=== PATIENT | female | born 2000 | race Caucasian/White ===

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

== ENCOUNTER 2020-08-01 08:27 | Emergency (ER) | payer OTHER ==
[2020-08-01 09:27] LABS: Absolute Lymphocytes (CBC) 2.6 K/uL (0.7-4.9); Basophils % 0.5 % (0-1.3); Hematocrit 37.8 % (36.0-45.0); Lymphocytes % 25.8 % (15.3-44.8); MPV 7.8 fL (7.6-11.3); RBC Red Blood Cell Count 4.85 M/uL (3.86-4.86)
[2020-08-01] MEDS ORDERED: NA CHLORIDE 0.9% 1,000 ML ONE (09:30)
[2020-08-01 09:48] LABS: BUN Blood Urea Nitrogen 4 mg/dL (7-18); Bicarbonate 23 mmol/L (21-32); Glucose Level 91 mg/dL (74-106); HCG, Quantitative 97583 mIU/mL (1-3); Potassium 3.9 mmol/L (3.5-5.1); Sodium Level 136 mmol/L (136-145)
--- NOTE | 2020-08-01 10:26 | EDPHYS ---
Physician Documentation [facility] Name: Allie Marvin Age: 19 yrs Sex: Female : 2000 Arrival Date: 08/01/2020 Time: 08:29 Bed 11 Private MD: ED Physician Nolberto Moyer HPI: 08/01 08:58 This 19 yrs old Female presents to ER via Ambulatory with complaints of yazmin Vaginal Bleeding, + Preg <12wks. 08:58 The patient presents to the emergency department with possible uterine contractions. yazmin [address] MAGISTRATE: 09:22 LMP N/A - tw2 Historical: - Allergies: 08:41 No Known Allergies; hb - Home Meds: 08:41 Protonix Oral [Active]; Vitamin Oral tab 1 tab once daily [Active]; hb - PMHx: 08:41 bleeding ulcer; PUD; hb - PSHx: 08:41 None; hb - Immunization history:: Adult Immunizations up to date. - Social history:: Smoking status: Patient denies any tobacco usage or history of. ROS: 09:12 Constitutional: Negative for fever, chills, and weight loss, Eyes: Negative for injury, yazmin pain, redness, and discharge, ENT: Negative for injury, pain, and discharge, Neck: Negative for injury, pain, and swelling, Cardiovascular: Negative for chest pain, palpitations, and edema, Respiratory: Negative for shortness of breath, cough, wheezing, and pleuritic chest pain, Abdomen/GI: Negative for abdominal pain, nausea, vomiting, diarrhea, and constipation, Back: Negative for injury and pain, MS/Extremity: Negative for injury and deformity, Skin: Negative for injury, rash, and discoloration, Neuro: Negative for headache, weakness, numbness, tingling, and seizure, Psych: Negative for depression, anxiety, suicide ideation, homicidal ideation, and hallucinations, Allergy/Immunology: Negative for hives, rash, and allergies, Endocrine: Negative for neck swelling, polydipsia, polyuria, polyphagia, and marked weight changes, Hematologic/Lymphatic: Negative for swollen nodes, abnormal bleeding, and unusual bruising. 09:12 : Positive for pelvic pain, vaginal bleeding. Exam: 09:12 Constitutional: This is a well developed, well nourished patient who is awake, alert, yazmin and in no acute distress. Head/Face: Normocephalic, atraumatic. Eyes: Pupils equal round and reactive to light, extra-ocular motions intact. Lids and lashes normal. Conjunctiva and sclera are non-icteric and not injected. Cornea within normal limits. Periorbital areas with no swelling, redness, or edema. ENT: Nares patent. No nasal discharge, no septal abnormalities noted. Tympanic membranes are normal and external auditory canals are clear. Oropharynx with no redness, swelling, or masses, exudates, or evidence of obstruction, uvula midline. Mucous membranes moist. Neck: Trachea midline, no thyromegaly or masses palpated, and no cervical lymphadenopathy. Supple, full range of motion without nuchal rigidity, or vertebral point tenderness. No Meningismus. Chest/axilla: Normal chest wall appearance and motion. Nontender with no deformity. No lesions are appreciated. Cardiovascular: Regular rate and rhythm with a normal S1 and S2. No gallops, murmurs, or rubs. Normal PMI, no JVD. No pulse deficits. Respiratory: Lungs have equal breath sounds bilaterally, clear to auscultation and percussion. No rales, rhonchi or wheezes noted. No increased work of breathing, no retractions or nasal flaring. Abdomen/GI: Soft, non-tender, with normal bowel sounds. No distension or tympany. No guarding or rebound. No evidence of tenderness throughout. Back: No spinal tenderness. No costovertebral tenderness. Full range of motion. Skin: Warm, dry with normal turgor. Normal color with no rashes, no lesions, and no evidence of cellulitis. MS/ Extremity: Pulses equal, no cyanosis. Neurovascular intact. Full, normal range of motion. Neuro: Awake and alert, GCS 15, oriented to person, place, time, and situation. Cranial nerves II-XII grossly intact. Motor strength 5/5 in all extremities. Sensory grossly intact. Cerebellar exam normal. Normal gait. 09:12 : CVA tenderness, is absent. Vital Signs: 08:40 BP 133 / 90; Pulse 89; Resp 16; Temp 97.8; Pulse Ox 100% on R/A; Weight 95.25 kg; hb Height 5 ft. 2 in. (157.48 cm); Pain 0/10; 08:40 Body Mass Index 38.41 (95.25 kg, 157.48 cm) hb MDM: 08:44 Patient medically screened. [facility] 09:13 Differential diagnosis: ectopic . Data reviewed: vital signs, nurses notes, [facility] lab test result(s), radiologic studies, ultrasound. Data interpreted: flight engineer manager: not applicable for this patient encounter. Test interpretation: by ED physician or midlevel provider:. Counseling: I had a detailed discussion with the patient and/or guardian regarding: the historical points, exam findings, and any diagnostic results supporting the discharge/admit diagnosis, lab results, radiology results, the need for outpatient follow up, for definitive care, an OB/Gyne specialist. 08/01 08:58 Order name: Quantitative Hcg; Complete Time: 10:25 [facility] 08/01 08:58 Order name: Abo/rh Typing; Complete Time: 10:25 [facility] 08/01 08:58 Order name: Basic Metabolic Panel; Complete Time: 10:25 [facility] 08/01 08:58 Order name: CBC with Diff; Complete Time: 10:25 [facility] 08/01 10:14 Order name: 1St Trimest Single 1St Fetus [facility] 08/01 08:58 Order name: IV Saline Lock; Complete Time: 09:12 [facility] 08/01 08:58 Order name: Labs collected and sent; Complete Time: 09:12 [facility] 08/01 08:58 Order name: NPO [facility] Administered Medications: 09:19 Drug: NS 0.9% 1000 ml Route: IV; Rate: 1 bolus; Site: left antecubital; tw2 10:10 Follow up: Response: No adverse reaction; IV Status: Completed infusion; IV Intake: tw2 1000ml Disposition: 08/01/20 10:25 Discharged to Home. Impression: Threatened . - Condition is Fair. - Discharge Instructions: Threatened Miscarriage, First Trimester of , Dxvt-eh-Uzvn, First Trimester of , Threatened Miscarriage, Usdr-av-Icvd, Pelvic Rest. - Prescriptions for Vitamin 27- 0.8 mg Oral Tablet - take 1 tablet by ORAL route once daily; 30 tablet. - Medication Reconciliation Form, Thank You Letter, Antibiotic Education, Prescription Opioid Use form. - Follow up: Private Physician; When: 2 - 3 days; Reason: Recheck today's complaints, Re-evaluation by your physician. Follow up: Hung Olvera; When: 2 - 3 days; Reason: Recheck today's complaints, Continuance of care, Re-evaluation by your physician. - Problem is new. - Symptoms have improved. Signatures: Dispatcher [employer] Nolberto Jean MD MD cha Baxter, Heather, RN RN Nicole Maurer RN RN tw2 Corrections: (The following items were deleted from the chart) 10:14 09:33 Transvaginal Ob+US.RAD.BRZ ordered. [facility] 10:35 10:25 08/01/2020 10:25 Discharged to Home. Impression: Threatened . Condition tw2 is Fair. Discharge Instructions: Threatened Miscarriage, First Trimester of , Dang-sz-Iscu, First Trimester of , Threatened Miscarriage, Uztk-po-Neqp, Pelvic Rest. Prescriptions for Vitamin 27-0.8 mg Oral Tablet - take 1 tablet by ORAL route once daily; 30 tablet. and Forms are Medication Reconciliation Form, Thank You Letter, Antibiotic Education, Prescription Opioid Use. Follow up: Private Physician; When: 2 - 3 days; Reason: Recheck today's complaints, Re-evaluation by your physician. Follow up: Hung Olvera; When: 2 - 3 days; Reason: Recheck today's complaints, Continuance of care, Re-evaluation by your physician. Problem is new. Symptoms have improved. yazmin
--- NOTE | 2020-08-01 10:26 | ER ---
Nurse's Notes [facility] Name: Allie Marvin Age: 19 yrs Sex: Female : 2000 Arrival Date: 08/01/2020 Time: 08:29 Bed 11 Private MD: Diagnosis: Threatened Presentation: 08/01 08:40 Chief complaint: Dark red vaginal bleeding upon waking today. Reports she is approx 10 hb weeks , denies pain. Coronavirus screen: At this time, the client does not indicate any symptoms associated with coronavirus-19. Ebola Screen: No symptoms or risks identified at this time. Initial Sepsis Screen: Does the patient meet any 2 criteria? No. Patient's initial sepsis screen is negative. Does the patient have a suspected source of infection? No. Patient's initial sepsis screen is negative. Risk Assessment: Do you want to hurt yourself or someone else? Patient reports no desire to harm self or others. Onset of symptoms was August 01, 2020. 08:40 Method Of Arrival: Ambulatory hb 08:40 Acuity: RAJIV 3 hb HEAD HOST/HOSTESS: 09:22 LMP N/A - tw2 Historical: - Allergies: 08:41 No Known Allergies; hb - Home Meds: 08:41 Protonix Oral [Active]; Vitamin Oral tab 1 tab once daily [Active]; hb - PMHx: 08:41 bleeding ulcer; PUD; hb - PSHx: 08:41 None; hb - Immunization history:: Adult Immunizations up to date. - Social history:: Smoking status: Patient denies any tobacco usage or history of. Screenin:44 Abuse screen: Denies threats or abuse. Nutritional screening: No deficits noted. tw2 Tuberculosis screening: No symptoms or risk factors identified. Fall Risk None identified. Assessment: 08:44 Reassessment: pt states "i got a rhogam shot a couple of weeks ago, i have the card in tw2 my car if yall need it because of my Rh negative", "also my doctor told me to come here because they werent seeing pts". General: Appears in no apparent distress. obese, well groomed, Behavior is calm, cooperative, appropriate for age. Pain: Denies pain. Neuro: Level of Consciousness is awake, alert, obeys commands, Oriented to person, place, time, situation. Cardiovascular: Patient's skin is warm and dry. Respiratory: Airway is patent Respiratory effort is even, unlabored, Respiratory pattern is regular, symmetrical. GI: No signs and/or symptoms were reported involving the gastrointestinal system. : Reports vaginal bleeding that is bright red, heavy flow since this morning but some yesterday too. EENT: No signs and/or symptoms were reported regarding the EENT system. Musculoskeletal: Range of motion: intact in all extremities. 10:35 Reassessment: Patient appears in no apparent distress at this time. No changes from tw2 previously documented assessment. Patient and/or family updated on plan of care and expected duration. Pain level reassessed. Patient is alert, oriented x 3, equal unlabored respirations, skin warm/dry/pink. Vital Signs: 08:40 BP 133 / 90; Pulse 89; Resp 16; Temp 97.8; Pulse Ox 100% on R/A; Weight 95.25 kg; hb Height 5 ft. 2 in. (157.48 cm); Pain 0/10; 08:40 Body Mass Index 38.41 (95.25 kg, 157.48 cm) hb ED Course: 08:29 Patient arrived in ED. ds1 08:35 Nolberto Moyer MD is Attending Physician. yazmin 08:41 Triage completed. hb 08:41 Arm band placed on. hb 08:44 Nicole Chilel, RN is Primary Nurse. tw2 08:44 Call light in reach. Pulse ox on. NIBP on. tw2 09:00 Inserted saline lock: 20 gauge in left antecubital area, using aseptic technique. Blood tw2 collected. 10:14 1St Trimest Single 1St Fetus In Process Unspecified. EDMS 10:25 Hung Olvera MD is Referral Physician. yazmin 10:34 Assist provider with bone marrow aspiration. IV discontinued, intact, bleeding tw2 controlled, No redness/swelling at site. Pressure dressing applied. Administered Medications: 09:19 Drug: NS 0.9% 1000 ml Route: IV; Rate: 1 bolus; Site: left antecubital; tw2 10:10 Follow up: Response: No adverse reaction; IV Status: Completed infusion; IV Intake: tw2 1000ml Intake: 10:10 IV: 1000ml; Total: 1000ml. tw2 Outcome: 10:25 Discharge ordered by . yazmin 10:35 Discharged to home ambulatory. tw2 10:35 Condition: stable 10:35 Discharge instructions given to patient, Instructed on discharge instructions, follow up and referral plans. medication usage, safe sex practices, Demonstrated understanding of instructions, follow-up care, medications, Prescriptions given X 1. 10:35 Patient left the ED. tw2 Signatures: Dispatcher [employer] Nolberto Jean MD MD cha Sanford, Demi ds1 Deepika Carlin RN RN Nicole Chilel RN RN tw2
--- NOTE | 2020-08-01 10:30 | RAD REPORT ---
EXAM DESCRIPTION: US - 1St Trimest Single 1St Fetus - 08/01/2020 10:15 am CLINICAL HISTORY: ABD CRAMPING, COMPARISON: No comparisons Patient reports outside ultrasound study 3 weeks earlier indicating a 6-7 week . FINDINGS: Normal shaped intrauterine gestational sac is identified. pole is identified with a heart rate of 172 BPM. Bethel-rump length measurement corresponds to 8 week 0 day age. No intrauterine hematoma or mass. Uterus is normal size for 8 week gestation. Both ovaries are identified and show no suspicious findings. No adnexal abnormality. No blood or flui d in the cul de sac. Cervical canal appears closed. IMPRESSION: Single 8 week 0 day IUP with a calculated JOEY of 03/13/2021 Heart rate was 172 BPM. No intrauterine hematoma or mass. No adnexal abnormality.
[2020-08-01 10:46] VITALS: BP 133/90; TEMP 97.8; O2SAT 100
== END 2020-08-01 10:35 | disposition home or self-care (01) ==
LOC: ER 08:27
DX: O20.0 Threatened abortion (principal); Z3A.08 8 weeks gestation of pregnancy
CPT/HCPCS: 85025; 80048; 36415; 86900; 86901; 84702; 76801; 96360; 99285; J7030

== ENCOUNTER 2020-09-17 06:37 | Observation (INO) | payer OTHER, SELFPAY ==
--- OUTSIDE RECORDS SUMMARY | 2020-09-17 06:40 | XMS REPORT | Continuity of Care Document ---
:2000 Author Organization [facility] t Address [address] [place] [address] Care Team Providers Name Role Phone 2, Lab Attending Clinician Unavailable Pino Lam MD Attending Clinician Pedro Luis Medley DO Attending Clinician Doctor Unassigned, Name Attending Clinician Unavailable Problems This patient has no known problems. Allergies, Adverse Reactions, Alerts This patient has no known allergies or adverse reactions. Medications This patient has no known medications. Procedures This patient has no known procedures. Encounters Start End Encounter Admission Attending Care Care Encounter Source Date/Time Date/Time Type Type Clinicians Facility Department ID 2020-09-03 2020-09-03 Night Monitor 2, [facility] [id number] 09:14:40 09:29:40 Visit Dagoberto [id number] Catrina [id number] [place] [id number] [facility] [address] [facility] 2020-09-03 2020-09-03 Routine Carole MOSTAR [id number] 08:06:16 09:08:19 Katey Arenas [id number] Visit Catrina [id number] [place] [id number] [facility] [address] [facility] 2020-09-03 2020-09-03 Patient ELKIN Medley [id number] 00:00:00 00:00:00 Outreach Vasiliy ROWLAND [id number] Pedro Luis [facility] [id number] [facility] [id number] [facility] 2020-08-07 2020-08-07 Night Monitor 2, Adc Lab [facility] [id number] 08:54:05 09:09:05 Visit Dagoberto [id number] [facility] [id number] [place] [id number] [address] 2020-08-06 2020-08-06 Orders Doctor SANDRA [id number] 00:00:00 00:00:00 Only Unassigned, GAURANG [id number] [place] [facility] [id number] Results This patient has no known results.
[2020-09-17] MEDS ORDERED: Ringers Lactate 1,000 ML IV ONE (08:09)
[2020-09-17] MEDS ORDERED: ONDANSETRON 4 MG/2 ML VIAL ONE ×2 (08:09→11:00)
[2020-09-17 08:30] LABS: ALT/SGPT 17 U/L (12-78); AST/SGOT 12 U/L (15-37); Albumin 3.7 g/dL (3.4-5.0); Alkaline Phosphatase 65 U/L (45-117); BUN Blood Urea Nitrogen 6 mg/dL (7-18); Bicarbonate 24 mmol/L (21-32); Bilirubin Direct 0.1 mg/dL (0-0.2); Bilirubin Total 0.4 mg/dL (0.2-1.0); Glucose Level 132 mg/dL (74-106); Lipase 101 U/L (73-393); Potassium 3.5 mmol/L (3.5-5.1); Protein, Total 8.1 g/dL (6.4-8.2); Sodium Level 139 mmol/L (136-145)
[2020-09-17 08:33] LABS: Absolute Lymphocytes (CBC) 1.8 K/uL (0.7-4.9); Basophils % 0.1 % (0-1.3); Hematocrit 37.8 % (36.0-45.0); Lymphocytes % 11.8 % (15.3-44.8); RBC Red Blood Cell Count 4.61 M/uL (3.86-4.86)
--- NOTE | 2020-09-17 08:35 | RAD REPORT ---
EXAM DESCRIPTION: US - OB Limited - 09/17/2020 8:23 am CLINICAL HISTORY: with abdominal pain and vomiting COMPARISON: July 2020 FINDINGS: A limited examination was performed to assess placenta, amniotic fluid and viability. Single live into is in transverse presentation. The placenta is anterior. No placenta previa. Amniotic fluid is within normal limits. Cervix measures 3.6 centimeters. Cardiac activity 147 beats per minute. The right and left adnexal unremarkable IMPRESSION: Single live intrauterine in transverse presentation No gross abnormality displayed on this limited exam. If a survey is desired it should be performed in approximately 3-4 weeks
--- NOTE | 2020-09-17 08:41 | RAD REPORT ---
EXAM DESCRIPTION: US - Abdomen Exam Limited - 09/17/2020 8:23 am CLINICAL HISTORY: Abdominal pain. Vomiting COMPARISON: None. FINDINGS: The gallbladder wall is not thickened. A gallstone is not seen. The biliary tree is normal caliber. IMPRESSION: Unremarkable gallbladder ultrasound.
[2020-09-17] MEDS ORDERED: PROMETHAZINE INJ 25 MG/ML AMP ONE (09:03)
[2020-09-17 09:17] LABS: Blood Morphology Comment NOT SEEN (NOT SEEN); Platelet Estimate ADEQ
[2020-09-17 10:16] LABS: Urine Blood Negative (Negative); Urine Glucose Negative (Negative); Urine Protein 2+ (Negative); Urine pH 7.5 (5.0-7.0)
[2020-09-17] MEDS ORDERED: NITROFURAN MACRO 100 MG CAP PO ONE (10:54)
--- NOTE | 2020-09-17 11:26 | EDPHYS ---
Physician Documentation [facility] Name: Allie Marvin Age: 19 yrs Sex: Female : 2000 Arrival Date: 09/17/2020 Time: 06:40 Bed 8 Private MD: ED Physician Joseph Jolly HPI: 09/17 07:42 This 19 yrs old Female presents to ER via Ambulatory with complaints of Body rn ache 16wks preg, vomiting. 07:42 The patient presents to the emergency department with nausea, vomiting, abdominal pain. rn Onset: The symptoms/episode began/occurred "since finding out was ". Possible causes: . The symptoms are aggravated by nothing. The symptoms are alleviated by nothing. Associated signs and symptoms: Pertinent positives: abdominal pain, nausea, vomiting, Pertinent negatives: GI bleeding. Severity of symptoms: At their worst the symptoms were moderate in the emergency department the symptoms are unchanged. The patient has experienced similar episodes in the past. It is unknown whether or not the patient has recently seen a physician. Reports nausea and vomiting "since finding out was ", worse over last couple of days, assoc with suprapubic pain, no vaginal bleeding, no discharge, + muscle aches, no fever. Mother states dehydrated. No known sick contacts. . COMBER SETTER: 07:11 1, unknown bb Historical: - Allergies: 07:11 No Known Allergies; bb - Home Meds: 07:11 Vitamin Oral tab 1 tab once daily [Active]; antiemetic [Active]; Protonix Oral bb [Active]; - PMHx: 07:11 bleeding ulcer; PUD; bb - PSHx: 07:11 None; bb - Immunization history:: Adult Immunizations up to date. - Social history:: Smoking status: Patient reports the use of cigarette tobacco products, denies chronic smoking, but will smoke occasionally. - Family history:: not pertinent. - Hospitalizations: : The patient was recently seen at [facility]. ROS: 07:42 Constitutional: Negative for fever, chills, and weight loss, Eyes: Negative for injury, rn pain, redness, and discharge, Neck: Negative for injury, pain, and swelling, Cardiovascular: Negative for chest pain, palpitations, and edema, Respiratory: Negative for shortness of breath, cough, wheezing, and pleuritic chest pain, Abdomen/GI: + abd pain/nausea/vomiting Back: Negative for injury and pain, : Negative for injury, bleeding, discharge, and swelling, MS/Extremity: Negative for injury and deformity, Skin: Negative for injury, rash, and discoloration, Neuro: Negative for headache, numbness, tingling, and seizure. Exam: 07:42 Constitutional: This is a well developed, well nourished patient who is awake, alert, rn holding emesis bag Head/Face: Normocephalic, atraumatic. ENT: dry MM Neck: Trachea midline, no thyromegaly or masses palpated, and no cervical lymphadenopathy. Supple, full range of motion without nuchal rigidity, or vertebral point tenderness. No Meningismus. Cardiovascular: Regular rate and rhythm. No pulse deficits. Respiratory: No increased work of breathing, no retractions or nasal flaring. Abdomen/GI: soft, + tenderness epigastric/RUQ/suprapubic, no rebound or peritoneal signs. Skin: Warm, dry MS/ Extremity: Pulses equal, no cyanosis. Neuro: Awake and alert, GCS 15 Vital Signs: 07:09 BP 144 / 84; Pulse 81; Resp 20 S; Temp 97.9(O); Pulse Ox 100% on R/A; Weight 99.79 kg bb (R); Height 5 ft. 2 in. (157.48 cm) (R); Pain 10/10; 10:00 BP 138 / 82; Pulse 80; Resp 16; Pulse Ox 99% on R/A; hb 07:09 Body Mass Index 40.24 (99.79 kg, 157.48 cm) bb MDM: 07:30 Patient medically screened. rn 11:16 ED course: Trevino dDr. Olvera for consultation twice, no answer, trying clinic. . rn 11:24 Differential diagnosis: Nonspecific abd pain, UTI, dehydration. Data reviewed: vital rn signs, nurses notes, lab test result(s), radiologic studies, and as a result, I will admit patient. Counseling: I had a detailed discussion with the patient and/or guardian regarding: the historical points, exam findings, and any diagnostic results supporting the discharge/admit diagnosis, lab results, radiology results, the need for further work-up and treatment in the hospital. Response to treatment: the patient's symptoms have mildly improved after treatment, and as a result, I will admit patient. Admission orders: after a detailed discussion of the patient's condition and case, the admit orders are written by me. ED course: Pt failed PO challenge, still vomiting, consulted with Dr. Olvera, agrees to admit [facility] to [facility] for IV [facility] and zofran.. 09/17 07:41 Order name: Basic Metabolic Panel; Complete Time: 08:44 rn 09/17 07:41 Order name: CBC with Diff; Complete Time: 09:56 rn 09/17 07:41 Order name: Hepatic Function; Complete Time: 08:44 rn 09/17 07:41 Order name: Lipase; Complete Time: 08:44 rn 09/17 07:41 Order name: Urine Microscopic Only rn 09/17 07:41 Order name: US OB Limited; Complete Time: 08:44 rn 09/17 07:41 Order name: US Abdomen Limited; Complete Time: 08:44 rn 09/17 09:00 Order name: SARS-COV-2 RT PCR; Complete Time: 09:56 EDMS 09/17 09:17 Order name: Manual Differential; Complete Time: 09:56 EDMS 09/17 10:16 Order name: Urine Dipstick-Ancillary; Complete Time: 10:24 EDMS 09/17 10:19 Order name: Urine --Ancillary (enter results) bd 09/17 07:41 Order name: IV Saline Lock; Complete Time: 08:10 rn 09/17 07:41 Order name: Labs collected and sent; Complete Time: 08:10 rn 09/17 07:41 Order name: Urine Dipstick-Ancillary (obtain specimen); Complete Time: 10:55 rn 09/17 10:24 Order name: PO challenge; Complete Time: 10:50 rn Administered Medications: 08:06 Drug: Zofran (Ondansetron) 4 mg Route: IVP; Site: right antecubital; hb 09:53 Follow up: Response: No adverse reaction hb 08:51 Drug: Lactated Ringers Solution 1000 ml Route: IV; Rate: 500 ml/hr; Site: right hb antecubital; 08:51 Drug: Phenergan 12.5 mg Route: IVP; Site: right antecubital; hb 09:25 Follow up: Response: No adverse reaction hb 10:50 Drug: Macrobid 100 mg Route: PO; hb 11:34 Follow up: Response: No adverse reaction hb 10:50 Drug: Zofran (Ondansetron) 4 mg Route: IVP; Site: right antecubital; hb 11:34 Follow up: Response: No adverse reaction hb Disposition: 09/17/20 11:26 Hospitalization ordered by Hung Olvera for Observation. Preliminary diagnosis are Intractable vomiting, Urinary tract infection, site not specified, Dehydration. - [facility]. - Status is Observation. iw - Condition is Stable. - Problem is new. - Symptoms are unchanged. Signatures: Dispatcher [employer] EDUT Yue Martin RN RN sv Jeniffer Daniels RN RN bb Williams, Irene, RN RN iw Nieto, Roman, MD MD rn Baxter, Heather, RN RN hb Corrections: (The following items were deleted from the chart) 08:21 07:42 CORONAVIRUS+MR.LAB.BRZ ordered. [facility] EDUT 11:38 11:26 Hospitalization Ordered by Hung Olvera MD for Observation. Preliminary sv diagnosis is Intractable vomiting; Urinary tract infection, site not specified; Dehydration. Bed requested for Telemetry/MedSurg (observation). Status is Observation. Condition is Stable. Problem is new. Symptoms are unchanged. rn 12:23 11:38 09/17/2020 11:26 Hospitalization Ordered by Hung Olvera MD for Observation. iw Preliminary diagnosis is Intractable vomiting; Urinary tract infection, site not specified; Dehydration. Bed requested for [facility]. Status is Observation. Condition is Stable. Problem is new. Symptoms are unchanged. sv
--- NOTE | 2020-09-17 11:26 | ER ---
Nurse's Notes [facility] Name: Allie Marvin Age: 19 yrs Sex: Female : 2000 Arrival Date: 09/17/2020 Time: 06:40 Bed 8 Private MD: Diagnosis: Intractable vomiting;Urinary tract infection, site not specified;Dehydration Presentation: 09/17 07:09 Chief complaint: Parent and/or Guardian states: pt has been vomiting excessively since bb yesterday, pt states she is not feeling right and is vomiting in triage. Coronavirus screen: At this time, the client does not indicate any symptoms associated with coronavirus-19. Ebola Screen: No symptoms or risks identified at this time. Initial Sepsis Screen: Does the patient meet any 2 criteria? No. Patient's initial sepsis screen is negative. Does the patient have a suspected source of infection? No. Patient's initial sepsis screen is negative. Risk Assessment: Do you want to hurt yourself or someone else? Patient reports no desire to harm self or others. Onset of symptoms was September 16, 2020. 07:09 Method Of Arrival: Ambulatory bb 07:09 Acuity: RAJIV 2 bb Triage Assessment: 07:11 General: Appears ill, Behavior is anxious. Pain: Complains of pain in all over Pain bb currently is 10 out of 10 on a pain scale. Neuro: Level of Consciousness is awake, obeys commands, Oriented to person, place, situation. GI: Pt is actively vomiting. 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 - Social history:: Smoking status: Patient reports the use of cigarette tobacco products, denies chronic smoking, but will smoke occasionally. - Family history:: not pertinent. - Hospitalizations: : The patient was recently seen at [facility]. Screenin:00 Abuse screen: Denies threats or abuse. Denies injuries from another. Nutritional hb screening: No deficits noted. Tuberculosis screening: No symptoms or risk factors identified. Fall Risk None identified. Assessment: 08:00 General: Appears in no apparent distress. ill, Behavior is calm, cooperative. Pain: hb Pain currently is 8 out of 10 on a pain scale. Neuro: Level of Consciousness is awake, alert, obeys commands, Oriented to person, place, time, situation. 08:00 Cardiovascular: Patient's skin is warm and dry. Rhythm is regular. Respiratory: hb Respiratory effort is even, unlabored, Respiratory pattern is regular, symmetrical. GI: Pt is actively vomiting bile, Reports intolerance of fluids, nausea, vomiting. : No signs and/or symptoms were reported regarding the genitourinary system. EENT: No signs and/or symptoms were reported regarding the EENT system. Derm: Skin is pink, warm \T\ dry. Musculoskeletal: Reports severe body aches. 09:00 Reassessment: Patient appears in no apparent distress at this time. Patient and/or hb family updated on plan of care and expected duration. Pain level reassessed. Patient is alert, oriented x 3, equal unlabored respirations, skin warm/dry/pink. 09:43 Reassessment: Patient appears in no apparent distress at this time. Patient and/or hb family updated on plan of care and expected duration. Pain level reassessed. Patient is alert, oriented x 3, equal unlabored respirations, skin warm/dry/pink. 10:51 Reassessment: Patient appears in no apparent distress at this time. Patient and/or hb family updated on plan of care and expected duration. Pain level reassessed. Patient is alert, oriented x 3, equal unlabored respirations, skin warm/dry/pink. Vital Signs: 07:09 BP 144 / 84; Pulse 81; Resp 20 S; Temp 97.9(O); Pulse Ox 100% on R/A; Weight 99.79 kg bb (R); Height 5 ft. 2 in. (157.48 cm) (R); Pain 10/10; 10:00 BP 138 / 82; Pulse 80; Resp 16; Pulse Ox 99% on R/A; hb 07:09 Body Mass Index 40.24 (99.79 kg, 157.48 cm) bb ED Course: 06:40 Patient arrived in ED. es 07:11 Triage completed. bb 07:11 Arm band placed on. bb 07:30 Jolly, Joseph, MD is Attending Physician. rn 08:00 Patient has correct armband on for positive identification. Bed in low position. Call hb light in reach. 08:06 Inserted saline lock: 20 gauge in right antecubital area, using aseptic technique. hb Blood collected. 08:06 COVID swab sent to lab. hb 08:10 Deepika Carlin RN is Primary Nurse. hb 08:23 US OB Limited In Process Unspecified. EDMS 08:23 US Abdomen Limited In Process Unspecified. EDMS 08:25 Ultrasound completed. Patient tolerated well. aa4 11:25 Hung Olvera MD is Hospitalizing Provider. rn 12:14 No provider procedures requiring assistance completed. Patient admitted, IV remains in iw place. Administered Medications: 08:06 Drug: Zofran (Ondansetron) 4 mg Route: IVP; Site: right antecubital; hb 09:53 Follow up: Response: No adverse reaction hb 08:51 Drug: Lactated Ringers Solution 1000 ml Route: IV; Rate: 500 ml/hr; Site: right hb antecubital; 08:51 Drug: Phenergan 12.5 mg Route: IVP; Site: right antecubital; hb 09:25 Follow up: Response: No adverse reaction hb 10:50 Drug: Macrobid 100 mg Route: PO; hb 11:34 Follow up: Response: No adverse reaction hb 10:50 Drug: Zofran (Ondansetron) 4 mg Route: IVP; Site: right antecubital; hb 11:34 Follow up: Response: No adverse reaction hb Outcome: 11:26 Decision to Hospitalize by Provider. rn 12:14 Admitted to with chart, Report called to [facility] Ward, in [facility] iw 12:14 Condition: good 12:14 Discharge instructions given to patient, family, Instructed on the need for admit. 12:23 Patient left the ED. Signatures: Dispatcher [employer] Juanis Thompson Brenda, RN RN bb Williams, Irene, RN RN Caroline Sal aa4 Joseph Jolly MD MD rn Baxter, Heather, HOMAR RN hb
[2020-09-17 11:47] LABS: Urine Amorphous Sediment 3+ /HPF (NONE SEEN); Urine Bacteria 20-50 /HPF (<20); Urine Mucus 1+ /HPF (NONE SEEN); Urine RBC <5 /HPF (NONE SEEN)
[2020-09-17] MEDS ORDERED: ONDANSETRON 4 MG/2 ML VIAL IV PRN (12:36)
[2020-09-17] MEDS ORDERED: D5LR 1,000 ML IV SCH (12:36)
[2020-09-17] MEDS ORDERED: D5LR 1,000 ML IV ONE (13:06)
[2020-09-17] MEDS ORDERED: METOCLOPRAMIDE 10 MG/2mL INJ ONE (13:07)
[2020-09-17] MEDS ORDERED: METOCLOPRAMIDE 10 MG/2mL INJ IV SCH (14:00)
[2020-09-17 14:10] VITALS: BMI 40.2
[2020-09-17] MEDS ORDERED: MORPHINE 4 MG/ML SYR IV ONE (16:51)
[2020-09-17] MEDS ORDERED: MORPHINE 4 MG/ML SYR ONE (17:12)
[2020-09-17 17:14] VITALS: O2SAT 98
[2020-09-17] MEDS: METOCLOPRAMIDE 10 MG/2mL INJ IV SCH (19:00)
[2020-09-17] MEDS: ACETAMINOPHEN 500 MG TAB PO PRN (20:00)
[2020-09-17] MEDS ORDERED: ACETAMINOPHEN 500 MG TAB PO SCH (20:00)
[2020-09-17] MEDS ORDERED: ACETAMINOPHEN 500 MG TAB ONE (20:26)
[2020-09-17] MEDS: NITROFURAN MACRO 100 MG CAP PO SCH (20:40)
--- NOTE | 2020-09-17 21:59 | PREOPHP ---
Date of Admission: 09/17/2020 History Of Present Illness: A 19-year-old primigravida at 16 weeks, was seen in our emergency room e mark in the for vaginal bleeding, was subsequently stopped. Comes back to the emergency room with severe nausea, vomiting, dehydration. The patient was still unable to keep anything down o r stop vomiting in the emergency room. Said she was admitted for overnight observation. She has bee n hydrated. Her electrolytes are normal. At this time, she is sleeping. She has been given prometh azine. She is also started on Reglan at this point IV. Family History: Noncontributory. Allergies: SHE HAS NO ALLERGIES. Medications: She has been taking vitamins. Physical Examination: HEENT: Clear. Pupils equal, round, reactive to light and accommodation. Conjunctivae well perfused . No oral, lingual, or buccal lesions noted in the emergency room. Heart and Lungs: Normal. Breasts: Not examined. Abdomen: Not examined. Extremities: Clear without edema, cyanosis, or clubbing. Assessment/plan: Essentially we have a healthy female at 16 weeks with severe hyperemesis, admit for hydration and stabilization. ROXY/ARELI Voice ID: [id number]
[2020-09-18] MEDS: METOCLOPRAMIDE 10 MG/2mL INJ IV SCH ×2 (00:55→07:40)
[2020-09-18 06:01] LABS: Absolute Lymphocytes (CBC) 2.4 K/uL (0.7-4.9); Basophils % 0.3 % (0-1.3); Hematocrit 31.2 % (36.0-45.0); Lymphocytes % 19.3 % (15.3-44.8); MPV 7.9 fL (7.6-11.3); RBC Red Blood Cell Count 3.82 M/uL (3.86-4.86)
[2020-09-18 06:03] VITALS: BP 119/66; TEMP 97.3
[2020-09-18 06:17] LABS: BUN Blood Urea Nitrogen 5 mg/dL (7-18); Bicarbonate 26 mmol/L (21-32); Glucose Level 109 mg/dL (74-106); Potassium 3.4 mmol/L (3.5-5.1); Sodium Level 139 mmol/L (136-145)
[2020-09-18] MEDS: ACETAMINOPHEN 500 MG TAB PO PRN (08:13)
--- NOTE | 2020-09-18 08:36 | DS ---
Allie Marvin, 19-year-old primigravida, 16 weeks admitted through the emergency room with hy peremesis gravidarum and dehydration -- mild. The patient has been seen locally by a local physician , but had an appointment to see me today, came into the emergency room and was admitted for overnight observation, was started on Reglan and Zofran and she feels much better. She ate a sandwich last ni ght and kept it down and says she feels much better this morning. We will let her go home. She is t o call my office for an appointment next week, probably Wednesday or Wednesday. We will continue her on t he Reglan. We will also continue on Macrobid since apparently she has a bladder infection, although cultures not come back yet. She has also taken omeprazole for diagnosis of stomach acidity and possi ble ulcer which she said was diagnosed when she was 14, but no endoscopy was performed. The patient is Rh negative, had RhoGAM administered in July when she was here for emergency room visit for brayden kelley. She knows to get another RhoGAM later in the probably around 32 weeks and then we will see what the blood type is of the baby when the baby is born. Full talk given includi ng diet, exercise things to avoid. She is managing to keep her vitamins down. If she has a relapse, we will go with scopolamine patches, but right now I do not think we need that. She has on ly lost about 6 pounds and the patient weighs in the 200 pounds range, so thus far we are not dealing with any significant weight loss. Final Diagnoses: Intrauterine gestation at 16 weeks, hyperemesis, mild dehydration, now co rrected. Electrolytes have been normal. To follow up in my office early next week. ROXY/ARELI Voice ID: [id number] Report ID: [id number]
[2020-09-18] MEDS: NITROFURAN MACRO 100 MG CAP PO SCH (08:40)
== END 2020-09-18 08:45 | disposition home or self-care (01) ==
LOC: ER 06:37 → ERHOLD 11:28 → 2ND-WC 12:14
PROVIDERS: ADMIT Specialist; ATTEND Specialist
DX: O21.1 Hyperemesis gravidarum with metabolic disturbance (principal); Z3A.16 16 weeks gestation of pregnancy; Z20.822 Contact with and (suspected) exposure to COVID-19; O99.332 Smoking (tobacco) complicating pregnancy, second trimester; F17.210 Nicotine dependence, cigarettes, uncomplicated
CPT/HCPCS: 36415; 76705; 76815; 80048; 80076; 81003; 81015; 83690; 85025; 87077; 87086; 87088; 87186; 96374; 96375; 99285; G0378; J2405; J2550; J2765; J7120; J7121; U0003

== ENCOUNTER 2020-10-03 12:57 | Observation (INO) | payer OTHER ==
--- OUTSIDE RECORDS SUMMARY | 2020-10-03 13:00 | XMS REPORT | Continuity of Care Document ---
:2000 Author Organization [facility] t Address [address] [place] [address] Care Team Providers Name Role Phone Pino Lam MD Attending Clinician 2, Lab Attending Clinician Unavailable Pedro Luis Medley DO Attending Clinician Doctor [...] Date/Time Type Type Clinicians Facility Department ID 2020-09-17 2020-09-17 Telephone Ad, [facility] [id number] 00:00:00 00:00:00 Katey Arenas [id number] [place] [id number] Professio [phone] [facility] [address] [facility] 2020-09-03 2020-09-03 Thermodynamic Physicist 2, Adc Lab [facility] [id number] 09:14:40 09:29:40 Visit Dagoberto [id number] [place] [id number] Professio [phone] [address] 2020-09-03 2020-09-03 Routine Adum, [facility] [id number] 08:06:16 09:08:19 Katey Arenas [id number] Visit Catrina [id number] Professio [phone] [facility] 2020-09-03 2020-09-03 Patient Galindo [facility] [id number] 00:00:00 00:00:[address] [facility] [id number] [facility] [id number] [place] [phone] 2020-09-03 2020-09-03 Orders Doctor SANDRA [id number] 00:00:00 00:00:00 Only Unassigned, GAURANG [id number] [place] [facility] [id number] 2020-08-07 2020-08-07 Thermodynamic Physicist 2, Adc Lab [facility] [id number] 08:54:05 09:09:05 Visit Dagoberto [id number] [place] [id number] [place] [phone] [facility] [address] [facility] 2020-08-06 2020-08-06 Orders Doctor SANDRA [id number] 00:00:00 00:00:00 Only Unassigned, GAURANG [id number] [place] [facility] [id number] [id number] Results This patient has no known results.
[2020-10-03 14:03] LABS: Absolute Lymphocytes (CBC) 2.1 K/uL (0.7-4.9); Basophils % 0.2 % (0-1.3); Hematocrit 39.5 % (36.0-45.0); Lymphocytes % 9.9 % (15.3-44.8); MPV 8.1 fL (7.6-11.3); RBC Red Blood Cell Count 4.78 M/uL (3.86-4.86)
[2020-10-03 14:14] LABS: ALT/SGPT 20 U/L (12-78); AST/SGOT 12 U/L (15-37); Alkaline Phosphatase 71 U/L (45-117); BUN Blood Urea Nitrogen 8 mg/dL (7-18); Bicarbonate 18 mmol/L (21-32); Bilirubin Direct < 0.1 mg/dL (0-0.2); Bilirubin Total 0.4 mg/dL (0.2-1.0); Glucose Level 144 mg/dL (74-106); Lipase 100 U/L (73-393); Magnesium 1.7 mg/dL (1.8-2.4); Potassium 3.5 mmol/L (3.5-5.1); Protein, Total 8.6 g/dL (6.4-8.2); Sodium Level 138 mmol/L (136-145)
[2020-10-03 14:19] LABS: Urine Blood Negative (Negative); Urine Glucose Negative (Negative); Urine Protein 3+ (Negative); Urine Specific Gravity >=1.030 (1.005-1.030)
[2020-10-03] MEDS ORDERED: NA CHLORIDE 0.9% 1,000 ML ONE (14:21)
[2020-10-03] MEDS ORDERED: FAMOTIDINE 20 MG/2 ML VIAL IV ONE (14:21)
[2020-10-03] MEDS ORDERED: ONDANSETRON 4 MG/2 ML VIAL ONE (14:21)
[2020-10-03 15:19] LABS: Urine Bacteria >50 /HPF (<20); Urine RBC <5 /HPF (NONE SEEN)
[2020-10-03 15:20] LABS: Urine Amorphous Sediment 4+ /HPF (NONE SEEN)
[2020-10-03 15:25] LABS: Blood Morphology Comment NOT SEEN (NOT SEEN); Platelet Estimate INCR
--- NOTE | 2020-10-03 15:29 | RAD REPORT ---
EXAM DESCRIPTION: US - OB Limited - 10/03/2020 3:17 pm CLINICAL HISTORY: ABD PAIN Pelvic pain, vomiting COMPARISON: OB Limited dated 09/17/2020 FINDINGS: A limited study was requested by the ER personnel. A single variable presenting gestation is identified. Heart rate normal. The approximate ultrasound gestational age is 17 weeks 3 days. Placental mass is anterior and normal in appearance. Amniotic fluid is subjectively normal. Cervix ap pears closed.
[2020-10-03] MEDS ORDERED: METOCLOPRAMIDE 10 MG/2mL INJ ONE (16:01)
[2020-10-03] MEDS ORDERED: MORPHINE 2 MG/ML SYR ONE (16:02)
[2020-10-03] MEDS ORDERED: Ringers Lactate 1,000 ML IV ONE (16:02)
[2020-10-03] MEDS ORDERED: MAGNESIUM SULFATE 1 gm IVPB 1 GM/100 ML BAG IV ONE (16:03)
[2020-10-03] MEDS ORDERED: D5LR 1,000 ML IV ONE (17:08)
--- NOTE | 2020-10-03 17:41 | ER ---
Nurse's Notes [facility] Name: Allie Marvin Age: 19 yrs Sex: Female : 2000 Arrival Date: 10/03/2020 Time: 12:58 Bed 24 Private MD: Diagnosis: Hyperemesis gravidarum with metabolic disturbance;Upper abdominal pain, unspecified Presentation: 10/03 13:10 Chief complaint: Patient states: Vomiting since 0400 this morning. Took Promethazine at ca1 1100, no relief. Pt 18 wks , reports of previous hospitalization for vomiting with the same . Coronavirus screen: Client denies travel out of the [place] in the last 14 days. nausea, vomiting. Client presents with at least one sign or symptom that may indicate coronavirus-19. Standard/surgical mask placed on the client. Provider contacted for isolation considerations. Ebola Screen: Patient negative for fever greater than or equal to 101.5 degrees Fahrenheit, and additional compatible Ebola Virus Disease symptoms Patient denies exposure to infectious person. Patient denies travel to an Ebola-affected area in the 21 days before illness onset. No symptoms or risks identified at this time. Initial Sepsis Screen: Does the patient meet any 2 criteria? No. Patient's initial sepsis screen is negative. Does the patient have a suspected source of infection? No. Patient's initial sepsis screen is negative. Risk Assessment: Do you want to hurt yourself or someone else? Patient reports no desire to harm self or others. Onset of symptoms was October 03, 2020 at 04:00. 13:10 Method Of Arrival: Wheelchair ca1 13:10 Acuity: RAJIV 3 ca1 DATA SYSTEMS ANALYST: 13:13 1, LMP N/A - Irregular menses ca1 Historical: - Allergies: 13:13 No Known Allergies; ca1 - Home Meds: 13:13 Protonix Oral [Active]; Vitamin Oral tab 1 tab once daily [Active]; antiemetic ca1 [Active]; - PMHx: 13:13 bleeding ulcer; PUD; ca1 - PSHx: 13:13 None; ca1 - Immunization history:: Flu vaccine is not up to date. - Social history:: Smoking status: Patient denies any tobacco usage or history of. Screenin:00 Abuse screen: Denies threats or abuse. Nutritional screening: Has had N/V for 3 or more kg days. Tuberculosis screening: No symptoms or risk factors identified. Fall Risk None identified. Assessment: 13:50 General: Appears distressed, uncomfortable, Behavior is anxious, restless, Reports kg feeling ill for > 3 days. Pain: Complains of pain in abdomen Pain currently is 10 out of 10 on a pain scale. Quality of pain is described as aching, tender, Pain began gradually, 2-3 days ago. Noted to be moaning, restless. Neuro: No deficits noted. Cardiovascular: No deficits noted. Respiratory: No deficits noted. GI: Pt is actively vomiting bile, clear fluid, Reports lower abdominal pain, upper abdominal pain, intolerance of fluids, intolerance of food, nausea, Pain is 10 out of 10 on a pain scale. vomiting. : No deficits noted. EENT: No deficits noted. Derm: No deficits noted. Musculoskeletal: No deficits noted. 19:45 Reassessment: Patient and/or family updated on plan of care and expected duration. Pain cr4 level reassessed. Patient is alert, oriented x 3, equal unlabored respirations, skin warm/dry/pink. Patient states feeling better. Patient states symptoms have improved. 20:19 Reassessment: Patient stated she wanted to leave due to a family emergency. She was cr4 told she would have to leave AMA and sign a form. and that Dr. Olvera would be notified.. Vital Signs: 13:10 BP 147 / 97; Pulse 103; Resp 20 S; Temp 97.9(TE); Pulse Ox 100% on R/A; ca1 14:00 BP 127 / 78; Pulse 102; Resp 20; Pulse Ox 99% on R/A; kg 15:00 BP 138 / 90; Pulse 100; Resp 20; Pulse Ox 96% on R/A; kg 16:00 BP 122 / 98; Pulse 100; Resp 20; Pulse Ox 98% on R/A; kg 17:00 BP 124 / 98; Pulse 100; Resp 20; Pulse Ox 97% on R/A; kg 18:00 BP 113 / 94; Pulse 105; Resp 20; Pulse Ox 100% ; kg 20:22 BP 131 / 91; Pulse 107; Resp 16; Temp 98.6; Pulse Ox 100% ; Pain 7/10; cr4 ED Course: 12:58 Patient arrived in ED. as 13:12 Triage completed. ca1 13:16 Pete Beth is Primary Nurse. kg 13:17 Nolberto Kaplan PA is PHCP. cp 13:17 Joseph Jolly MD is Attending Physician. cp 13:59 Inserted saline lock: 20 gauge in left hand, using aseptic technique. kg 14:19 Urine Microscopic Only Sent. kg 14:19 Notified Nurse Practitioner and/or Physician Computer Programmer of a critical lab result(s), zb 21.1 WBC. notified ECP PAGE. 15:17 OB Limited In Process Unspecified. EDMS 17:40 Hung Olvera MD is Hospitalizing Provider. cp 18:06 Arm band placed on right wrist. kg 18:06 Patient has correct armband on for positive identification. Bed in low position. Call kg light in reach. Side rails up X 1. 19:19 Report given to Report given to Yuridia GRAF. kg 20:17 No provider procedures requiring assistance completed. IV discontinued, intact, cr4 bleeding controlled, No redness/swelling at site. Pressure dressing applied. 20:26 Notified the admitting physician of Called and left a message saying the cr4 patient wanted to leave AMA. Administered Medications: 14:18 Drug: Zofran (Ondansetron) 4 mg Route: IVP; Site: left hand; kg 15:15 Follow up: Response: No adverse reaction; No change in condition kg 14:18 Drug: Pepcid (famotidine) 20 mg Route: IVP; Site: left hand; kg 14:19 Drug: NS 0.9% 1000 ml Route: IV; Rate: 1 bolus; Site: left hand; kg 15:45 Drug: Reglan (metoCLOPramide) 10 mg Route: IVP; Site: left hand; kg 17:14 Follow up: Response: Marked relief of symptoms kg 15:45 Drug: morphine 2 mg Route: IVP; Site: left hand; kg 16:48 Not Given (Fluid changed): Lactated Ringers Solution 1000 ml IV at 250 ml/hr continuous kg 16:52 Drug: D5-LR 1000 ml Route: IV; Rate: 125 ml/hr; Site: left hand; kg Outcome: 17:41 Decision to Hospitalize by Provider. cp 20:17 AMA AMA form signed cr4 20:17 Condition: good 20:21 Patient left the ED. iw Signatures: Dispatcher [employer] Ara Brunson Irene RN RN Yuridia Metz, RN RN cr4 Nolberto Kaplan PA PA cp Acob, Cheryl RN RN Cori Dhillon RN RN Beth Hoang kg Corrections: (The following items were deleted from the chart) 16:21 14:18 CORONAVIRUS+MR.LAB.BRZ drawn and sent. kg MAXX
--- NOTE | 2020-10-03 17:41 | EDPHYS ---
Physician Documentation [facility] Name: Allie Marvin Age: 19 yrs Sex: Female : 2000 Arrival Date: 10/03/2020 Time: 12:58 Bed 24 Private MD: ED Physician Joseph Jolly HPI: 10/03 13:30 This 19 yrs old Female presents to ER via Wheelchair with complaints of cp Vomiting - 18 wks preg. 13:30 The patient presents to the emergency department with nausea, with "dry heaves", cp vomiting, that is continuous, described as bilious. Onset: The symptoms/episode began/occurred this morning, at 04:00. Possible causes: , patient reports being approximately 18 weeks gestation. 13:30 Associated signs and symptoms: Pertinent positives: abdominal pain, anorexia, Pertinent cp negatives: diarrhea, fever, GI bleeding, vaginal bleeding. 13:30 Severity of symptoms: in the emergency department the symptoms are unchanged despite cp home interventions. LIBRARIAN HEAD: 13:13 1, LMP N/A - Irregular menses ca1 Historical: - Allergies: 13:13 No Known Allergies; ca1 - Home Meds: 13:13 Protonix Oral [Active]; Vitamin Oral tab 1 tab once daily [Active]; antiemetic ca1 [Active]; - PMHx: 13:13 bleeding ulcer; PUD; ca1 - PSHx: 13:13 None; ca1 - Immunization history:: Flu vaccine is not up to date. - Social history:: Smoking status: Patient denies any tobacco usage or history of. ROS: 13:35 Constitutional: Positive for poor PO intake, Negative for body aches, chills, fever. cp 13:35 Eyes: Negative for injury, pain, redness, and discharge. cp 13:35 ENT: Negative for ear pain, sore throat, difficulty swallowing, difficulty handling secretions. 13:35 Cardiovascular: Negative for chest pain. 13:35 Respiratory: Negative for cough, shortness of breath, wheezing. 13:35 Abdomen/GI: Positive for abdominal pain, nausea and vomiting, anorexia, Negative for diarrhea, constipation, hematemesis. 13:35 Back: Negative for radiated pain. 13:35 Neuro: Positive for tingling, of the right hand and left hand, Negative for altered mental status, headache, weakness. 13:35 All other systems are negative. Exam: 13:40 Constitutional: The patient appears in no acute distress, alert, awake, non-toxic, well cp developed, well nourished, obese, uncomfortable. 13:40 Head/Face: Normocephalic, atraumatic. cp 13:40 Eyes: Periorbital structures: appear normal, Conjunctiva: normal, no exudate, no injection, Sclera: no appreciated abnormality, Lids and lashes: appear normal, bilaterally. 13:40 ENT: External ear(s): are unremarkable, Nose: is normal, Mouth: Lips: dry, Posterior pharynx: Airway: no evidence of obstruction, patent. 13:40 Neck: ROM/movement: is normal, is supple, without pain, no range of motions limitations. 13:40 Chest/axilla: Inspection: normal, Palpation: is normal, no crepitus, no tenderness. 13:40 Cardiovascular: Rate: tachycardic, Rhythm: regular. 13:40 Respiratory: the patient does not display signs of respiratory distress, Respirations: normal, no use of accessory muscles, no retractions, labored breathing, is not present, Breath sounds: are clear throughout, no decreased breath sounds, no stridor, no wheezing. 13:40 Abdomen/GI: Inspection: abdomen appears normal, Bowel sounds: active, all quadrants, Palpation: soft, in all quadrants, moderate abdominal tenderness, in the right upper quadrant and left upper quadrant, rebound tenderness, is not appreciated, involuntary guarding, is not appreciated. 13:40 Back: pain, is absent, ROM is normal. 13:40 Neuro: Orientation: to person, place \\T\\ time. Mentation: is normal. Vital Signs: 13:10 BP 147 / 97; Pulse 103; Resp 20 S; Temp 97.9(TE); Pulse Ox 100% on R/A; ca1 14:00 BP 127 / 78; Pulse 102; Resp 20; Pulse Ox 99% on R/A; kg 15:00 BP 138 / 90; Pulse 100; Resp 20; Pulse Ox 96% on R/A; kg 16:00 BP 122 / 98; Pulse 100; Resp 20; Pulse Ox 98% on R/A; kg 17:00 BP 124 / 98; Pulse 100; Resp 20; Pulse Ox 97% on R/A; kg 18:00 BP 113 / 94; Pulse 105; Resp 20; Pulse Ox 100% ; kg 20:22 BP 131 / 91; Pulse 107; Resp 16; Temp 98.6; Pulse Ox 100% ; Pain 7/10; cr4 MDM: 13:25 Patient medically screened. cp 14:00 Differential diagnosis: gastritis, cholecystitis, pancreatitis, appendicitis, viral cp gastroenteritis, gastroenteritis, dehydration, electrolyte abnormality. 16:22 Data reviewed: vital signs, nurses notes, lab test result(s), radiologic studies, cp ultrasound. Physician consultation: Hung Olvera MD was called at 16:23, regarding patient's condition, left message on voicemail. 17:09 Physician consultation: Hung Olvera MD was called at 17:09, regarding patient's cp condition, left message on voicemail. 10/03 13:17 Order name: Basic Metabolic Panel; Complete Time: 14:37 cp 10/03 15:31 Interpretation: Normal except: CO2 18; GLUC 144. cp 10/03 13:17 Order name: CBC with Diff; Complete Time: 15:26 cp 10/03 15:31 Interpretation: Normal except: WBC 21.10; PLT 410; RDW 17.0; CASEY% 87.0; LYM% 9.9; MN% cp 2.9; NEUT A 18.4. 10/03 13:17 Order name: Hepatic Function; Complete Time: 14:37 cp 10/03 13:17 Order name: Lipase; Complete Time: 14:37 cp 10/03 13:17 Order name: Magnesium; Complete Time: 14:37 cp 10/03 13:27 Order name: Urine Microscopic Only; Complete Time: 15:26 cp 10/03 14:18 Order name: Urine Dipstick-Ancillary; Complete Time: 14:37 EDMS 10/03 15:25 Order name: Manual Differential; Complete Time: 15:26 EDMS 10/03 17:12 Order name: SARS-COV-2 RT PCR EDMS 10/03 17:56 Order name: Basic Metabolic Panel EDMS 10/03 17:56 Order name: Basic Metabolic Panel EDMS 10/03 17:56 Order name: CBC with Automated Diff EDMS 10/03 14:42 Order name: OB Limited; Complete Time: 15:30 EDMS 10/03 17:56 Order name: CBC with Automated Diff EDMS 10/03 17:56 Order name: Lipase [facility] 10/03 17:56 Order name: Lipase [facility] 10/03 17:56 Order name: Liver (Hepatic) Function [facility] 10/03 17:56 Order name: Liver (Hepatic) Function [facility] 10/03 13:17 Order name: IV Saline Lock; Complete Time: 14:20 cp 10/03 13:17 Order name: Labs collected and sent; Complete Time: 14:20 cp 10/03 13:18 Order name: Urine Dipstick-Ancillary (obtain specimen); Complete Time: 14:19 cp Administered Medications: 14:18 Drug: Zofran (Ondansetron) 4 mg Route: IVP; Site: left hand; kg 15:15 Follow up: Response: No adverse reaction; No change in condition kg 14:18 Drug: Pepcid (famotidine) 20 mg Route: IVP; Site: left hand; kg 14:19 Drug: NS 0.9% 1000 ml Route: IV; Rate: 1 bolus; Site: left hand; kg 15:45 Drug: Reglan (metoCLOPramide) 10 mg Route: IVP; Site: left hand; kg 17:14 Follow up: Response: Marked relief of symptoms kg 15:45 Drug: morphine 2 mg Route: IVP; Site: left hand; kg 16:48 Not Given (Fluid changed): Lactated Ringers Solution 1000 ml IV at 250 ml/hr continuous kg 16:52 Drug: D5-LR 1000 ml Route: IV; Rate: 125 ml/hr; Site: left hand; kg Disposition: 10/03/20 17:41 Hospitalization ordered by Hung Olvera for Observation. Preliminary diagnosis are Hyperemesis gravidarum with metabolic disturbance, Upper abdominal pain, unspecified. - Bed [facility] for [facility]. - Status is Observation. iw - Condition is Stable. - Problem is new. - Symptoms have improved. Addendum: 10/07/2020 19:11 Co-signature as Attending Physician, Joseph Jolly MD. r n Signatures: Dispatcher [employer] [facility] Leela Arzola RN RN mw Williams, Irene, RN RN iw Nieto, Roman, MD MD rn Page, Corey, PA PA cp Mayra Devi RN RN ca1 Graham, Kristen kg Corrections: (The following items were deleted from the chart) 10/03 14:42 14:37 OB Complete+US.RAD.BRZ ordered. EDMS EDMS 14:46 14:39 Abdomen Limited+US.RAD.BRZ ordered. EDMS EDMS 15:20 13:19 UA MICROSCOPIC+U.LAB.BRZ ordered. EDMS EDMS 15:31 15:31 Normal except: WBC 21.10. cp cp 15:31 15:31 Normal except: WBC 21.10; PLT 410; RDW 17.0; CASEY% 87.0; LYM% 9.9; MN% 2.9. cp cp 16:21 13:29 CORONAVIRUS+MR.LAB.BRZ ordered. EDMS EDMS 19:21 17:41 Hospitalization Ordered by Hung Olvera MD for Observation. Preliminary mw diagnosis is Hyperemesis gravidarum with metabolic disturbance; Upper abdominal pain, unspecified. Bed requested for [facility]. Status is Observation. Condition is Stable. Problem is new. Symptoms have improved. cp 20:21 19:21 10/03/2020 17:41 Hospitalization Ordered by Hung Olvera MD for Observation. iw Preliminary diagnosis is Hyperemesis gravidarum with metabolic disturbance; Upper abdominal pain, unspecified. Bed requested for [facility]. Status is Observation. Condition is Stable. Problem is new. Symptoms have improved. mw
[2020-10-03] MEDS ORDERED: ONDANSETRON 4 MG/2 ML VIAL IV PRN (17:54)
[2020-10-03] MEDS ORDERED: PROMETHAZINE INJ 25 MG/ML AMP IV PRN (17:55)
[2020-10-03] MEDS ORDERED: D5LR 1,000 ML IV SCH (18:00)
[2020-10-03 20:41] VITALS: TEMP 97.9
[2020-10-03 20:48] VITALS: BP 113/94; O2SAT 100
== END 2020-10-03 20:00 | disposition left against medical advice (07) ==
LOC: ER 12:57 → ERHOLD 17:53
PROVIDERS: ADMIT Specialist; ATTEND Specialist
DX: O21.1 Hyperemesis gravidarum with metabolic disturbance (principal); Z3A.18 18 weeks gestation of pregnancy; O26.892 Other specified pregnancy related conditions, second trimester; R10.9 Unspecified abdominal pain; K27.9 Peptic ulcer, site unspecified, unspecified as acute or chronic, without hemorrhage or perforation; Z53.29 Procedure and treatment not carried out because of patient's decision for other reasons; Z20.822 Contact with and (suspected) exposure to COVID-19
CPT/HCPCS: 85025; 80048; 36415; 83735; 80076; 83690; 76815; 96375; 96374; 99284; U0003; J2765; J3475; J2270; J7121; J7120; J7030; J2405; G0378 ×2; 81003; 81015

== ENCOUNTER 2020-10-16 04:46 | Observation (INO) | payer OTHER ==
--- OUTSIDE RECORDS SUMMARY | 2020-10-16 04:49 | XMS REPORT | Continuity of Care Document ---
:2000 Author Organization [facility] t Address [address] [place] [address] Care Team Providers Name Role Phone Pino [...] Facility Department ID 2020-09-17 2020-09-17 Telephone Ad, [facility] [id number] 00:00:00 00:00:00 Katey Arenas [id number] [place] [id number] Professio [phone] [facility] [address] [facility] 2020-09-03 2020-09-03 Filter Tank Tender 2, Adc Lab [facility] [id number] 09:14:40 09:29:40 Visit Dagoberto [id number] [place] [id number] Professio [phone] [address] 2020-09-03 2020-09-03 Routine Adum, [facility] [id number] 08:06:16 09:08:19 Katey Arenas [id number] Visit Catrina [id number] Professio [phone] [facility] [address] [facility] 2020-09-03 2020-09-[address] [facility] [id number] 00:00:00 00:00:[address] [facility] [id number] [facility] [id number] [place] [phone] [id number] 2020-09-03 2020-09-03 Orders Doctor SANDRA [id number] 00:00:00 00:00:00 Only Unassigned, GAURANG [id number] [facility] [phone] [id number] 2020-08-07 2020-08-07 Filter Tank Tender 2, Adc Lab [facility] [id number] 08:54:05 09:09:05 Visit Dagoberto [id number] [place] [id number] [place] [phone] [facility] [address] [facility] 2020-08-06 2020-08-06 Orders Doctor SANDRA [id number] 00:00:00 00:00:00 Only Unassigned, GAURANG [id number] [facility] [phone] [id number] Results This patient has no known results.
[2020-10-16 05:36] LABS: Urine Blood Negative (Negative); Urine Glucose Negative (Negative); Urine Protein 1+ (Negative); Urine pH 6.5 (5.0-7.0)
[2020-10-16 06:15] LABS: Urine Amorphous Sediment 3+ /HPF (NONE SEEN); Urine Bacteria 20-50 /HPF (<20)
[2020-10-16 06:16] LABS: Urine RBC <5 /HPF (NONE SEEN)
[2020-10-16] MEDS ORDERED: ONDANSETRON 4 MG/2 ML VIAL ONE ×2 (06:33→08:31)
[2020-10-16 07:06] LABS: Basophils % 0.2 % (0-1.3); Hematocrit 37.5 % (36.0-45.0); MPV 8.7 fL (7.6-11.3); RBC Red Blood Cell Count 4.46 M/uL (3.86-4.86)
[2020-10-16] MEDS ORDERED: NA CHLORIDE 0.9% 1,000 ML ONE ×3 (07:14→08:31)
[2020-10-16] MEDS ORDERED: NA CHLORIDE 0.9% 2,000 ML ONE (07:16)
[2020-10-16 07:25] LABS: ALT/SGPT 23 U/L (12-78); AST/SGOT 13 U/L (15-37); Albumin 3.5 g/dL (3.4-5.0); Alkaline Phosphatase 65 U/L (45-117); BUN Blood Urea Nitrogen 7 mg/dL (7-18); Bicarbonate 23 mmol/L (21-32); Bilirubin Direct < 0.1 mg/dL (0-0.2); Bilirubin Total 0.3 mg/dL (0.2-1.0); Glucose Level 99 mg/dL (74-106); Lipase 70 U/L (73-393); Potassium 3.6 mmol/L (3.5-5.1); Protein, Total 7.9 g/dL (6.4-8.2); Sodium Level 136 mmol/L (136-145)
--- NOTE | 2020-10-16 07:56 | RAD REPORT ---
EXAM DESCRIPTION: US - OB Limited - 10/16/2020 6:59 am CLINICAL HISTORY: with abdominal pain COMPARISON: October 03, 2020 FINDINGS: Limited OB ultrasound performed. 3 centimeter hypoechoic structure lies between the placenta and uterine wall. The placenta is anterio r. Amniotic fluid normal. Cardiac activity 132 beats per minute. Cervix 3.9 centimeters IMPRESSION: 3 centimeter hypoechoic structure between the placenta and uterine wall probably a myome trial contraction. A retroplacental bleed can also have this appearance but is probably less likely. Follow-up ultrasound would be helpful for re-evaluation. Examination was discussed Doctor João in the Emergency Room 7:45 a.m. October 16, 2020
--- NOTE | 2020-10-16 08:15 | ER ---
Nurse's Notes [facility] Name: Allie Marvin Age: 19 yrs Sex: Female : 2000 Arrival Date: 10/16/2020 Time: 04:49 Bed 15 Private MD: Hung Olvera B Diagnosis: Abdominal tenderness; related conditions, unspecified, second trimester;Gastritis, unspecified Presentation: 10/16 05:06 Chief complaint: Patient states: she started having lower abdominal pain yesterday and bb now the pain is getting worse, pt is 19 weeks denies vaginal bleeding, denies burning with urination. Coronavirus screen: At this time, the client does not indicate any symptoms associated with coronavirus-19. Ebola Screen: No symptoms or risks identified at this time. Initial Sepsis Screen: Does the patient meet any 2 criteria? No. Patient's initial sepsis screen is negative. Does the patient have a suspected source of infection? No. Patient's initial sepsis screen is negative. Risk Assessment: Do you want to hurt yourself or someone else? Patient reports no desire to harm self or others. Onset of symptoms was October 15, 2020. 05:06 Method Of Arrival: Ambulatory bb 05:06 Acuity: RAJIV 3 bb Triage Assessment: 05:09 General: Appears in no apparent distress. uncomfortable, Behavior is calm, cooperative. bb Pain: Complains of pain in abdomen Pain currently is 10 out of 10 on a pain scale. Neuro: Level of Consciousness is awake, alert, obeys commands, Oriented to person, place, time, situation. Cardiovascular: No deficits noted. Respiratory: Respiratory effort is even, unlabored, Respiratory pattern is regular. GI: Abdomen is round Reports lower abdominal pain. : Denies burning with urination, vaginal bleeding. Derm: Skin is pink, warm \\T\\ dry. Musculoskeletal: Circulation, motion, and sensation intact. 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 - Social history:: Smoking status: Patient denies any tobacco usage or history of. - Family history:: not pertinent. Screenin:56 Abuse screen: Denies threats or abuse. Denies injuries from another. Nutritional jm8 screening: No deficits noted. Tuberculosis screening: No symptoms or risk factors identified. Fall Risk None identified. Assessment: 05:55 General: Appears in no apparent distress. uncomfortable, Behavior is calm, cooperative, jm8 appropriate for age. Pain: Complains of pain in pelvis Pain currently is 10 out of 10 on a pain scale. Pain began 1 day ago. Neuro: No deficits noted. Level of Consciousness is awake, alert, obeys commands, Oriented to person, place, time. Neuro:. Cardiovascular: No deficits noted. Respiratory: No deficits noted. GI: Abdomen is tender to palpation in suprapubic area Reports lower abdominal pain, upper abdominal pain, nausea, vomiting. : No deficits noted. EENT: No deficits noted. Derm: No signs and/or symptoms reported regarding the dermatologic system. Musculoskeletal: No deficits noted. 08:25 Reassessment: Received report from HOMAR Oh. Patient laying in bed with boyfriend at ld1 bedside. Denies concerns at this time. Awaiting results from tests. 08:57 Reassessment: Patient and/or family updated on plan of care and expected duration. Pain ld1 level reassessed. Patient is alert, oriented x 3, equal unlabored respirations, skin warm/dry/pink. Patient waiting to be transported upstairs to \\T\\D. Vital Signs: 05:06 BP 131 / 64; Pulse 83; Resp 16 S; Temp 98.2(O); Pulse Ox 100% on R/A; Weight 99.79 kg bb (R); Height 5 ft. 2 in. (157.48 cm) (R); Pain 10/10; 07:45 BP 119 / 54; Pulse 81; Resp 18; Pulse Ox 100% on R/A; ld1 08:27 BP 132 / 88; Pulse 79; Resp 18; Pulse Ox 100% on R/A; ld1 08:57 BP 150 / 72; Pulse 56; Resp 18; Pulse Ox 100% on R/A; ld1 05:06 Body Mass Index 40.24 (99.79 kg, 157.48 cm) ED Course: 04:49 Patient arrived in ED. es 04:50 Hung Olvera MD is Private Physician. es 05:08 Triage completed. bb 05:09 Arm band placed on. bb 05:57 Patient has correct armband on for positive identification. Bed in low position. Call 8 light in reach. Side rails up X2. 06:12 Nolberto Moyer MD is Attending Physician. yazmin 06:58 US OB Limited In Process Unspecified. EDMS 08:07 Leticia Ceballos, HOMAR is Primary Nurse. ld1 08:13 Hung Olvera MD is Hospitalizing Provider. yazmin 08:57 COVID-19 : Document "Date of Symptom Onset" if Symptomatic. Sent. ld1 08:59 No provider procedures requiring assistance completed. Patient admitted, IV remains in ld1 place. intact, bleeding controlled, No redness/swelling at site. Administered Medications: 06:16 Drug: Zofran (Ondansetron) 4 mg Route: IVP; Site: right antecubital; jm8 06:58 Drug: NS 0.9% 1000 ml Route: IV; Rate: 1 bolus; Site: right antecubital; jm8 08:21 Drug: NS 0.9% 1000 ml Route: IV; Rate: 125 ml/hr; Site: right antecubital; ld1 08:57 Follow up: Response: No adverse reaction ld1 08:21 Drug: morphine 2 mg Route: IVP; Site: right antecubital; ld1 08:22 Drug: morphine 2 mg Route: IVP; Site: right antecubital; ld1 08:57 Follow up: Response: No adverse reaction ld1 08:22 Drug: Zofran (Ondansetron) 4 mg Route: IVP; Site: right antecubital; ld1 08:57 Follow up: Response: No adverse reaction ld1 08:23 Drug: Pepcid (famotidine) 20 mg Route: IVP; Site: right antecubital; ld1 08:43 Follow up: Response: No adverse reaction ld1 08:43 Follow up: Response: No adverse reaction ld1 Outcome: 08:15 Decision to Hospitalize by Provider. yazmin 08:59 Admitted to L \\T\\ D, accompanied by tech, via wheelchair, on monitor, with chart. ld1 08:59 Condition: stable 08:59 Instructed on the need for admit. 09:00 Patient left the ED. ld1 Signatures: Dispatcher [employer] Nolberto Jean MD MD cha Salyer, Edna es Ballard, Brenda RN RN Leticia Ramirez RN RN ld1 Adriano Mackey RN RN jm8
--- NOTE | 2020-10-16 08:16 | EDPHYS ---
Physician Documentation [facility] Name: Allie Marvin Age: 19 yrs Sex: Female : 2000 Arrival Date: 10/16/2020 Time: 04:49 Bed 15 Private MD: Hung Olvera B ED Physician Nolberto Moyer HPI: 10/16 08:08 This 19 yrs old Female presents to ER via Ambulatory with complaints of yazmin Pelvic Pain. 08:08 The patient presents with abdominal pain in the epigastric area, in the lower abdomen, yazmin abdominal distention in the lower abdomen. Onset: The symptoms/episode began/occurred last night. The patient presents to the emergency department with abdominal pain, of the suprapubic area, posterior aspect of right lateral abdomen and posterior aspect of left lateral abdomen. The estimated gestational age is 19 weeks. course: care: at a clinic, private OB physician, Dr. Olvera. 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 - Social history:: Smoking status: Patient denies any tobacco usage or history of. - Family history:: not pertinent. ROS: 08:08 Constitutional: Negative for fever, chills, and weight loss, Eyes: Negative for injury, yazmin pain, redness, and discharge, ENT: Negative for injury, pain, and discharge, Neck: Negative for injury, pain, and swelling, Cardiovascular: Negative for chest pain, palpitations, and edema, Respiratory: Negative for shortness of breath, cough, wheezing, and pleuritic chest pain, Back: Negative for injury and pain, : Negative for injury, bleeding, discharge, and swelling, MS/Extremity: Negative for injury and deformity, Skin: Negative for injury, rash, and discoloration, Neuro: Negative for headache, weakness, numbness, tingling, and seizure, Psych: Negative for depression, anxiety, suicide ideation, homicidal ideation, and hallucinations, Allergy/Immunology: Negative for hives, rash, and allergies, Endocrine: Negative for neck swelling, polydipsia, polyuria, polyphagia, and marked weight changes, Hematologic/Lymphatic: Negative for swollen nodes, abnormal bleeding, and unusual bruising. 08:08 Abdomen/GI: Positive for abdominal pain, of the epigastric area, right lower quadrant and left lower quadrant. Exam: 08:08 Constitutional: This is a well developed, well nourished patient who is awake, alert, yazmin and in no acute distress. Head/Face: Normocephalic, atraumatic. Eyes: Pupils equal round and reactive to light, extra-ocular motions intact. Lids and lashes normal. Conjunctiva and sclera are non-icteric and not injected. Cornea within normal limits. Periorbital areas with no swelling, redness, or edema. ENT: Nares patent. No nasal discharge, no septal abnormalities noted. Tympanic membranes are normal and external auditory canals are clear. Oropharynx with no redness, swelling, or masses, exudates, or evidence of obstruction, uvula midline. Mucous membranes moist. Neck: Trachea midline, no thyromegaly or masses palpated, and no cervical lymphadenopathy. Supple, full range of motion without nuchal rigidity, or vertebral point tenderness. No Meningismus. Chest/axilla: Normal chest wall appearance and motion. Nontender with no deformity. No lesions are appreciated. Cardiovascular: Regular rate and rhythm with a normal S1 and S2. No gallops, murmurs, or rubs. Normal PMI, no JVD. No pulse deficits. Respiratory: Lungs have equal breath sounds bilaterally, clear to auscultation and percussion. No rales, rhonchi or wheezes noted. No increased work of breathing, no retractions or nasal flaring. Back: No spinal tenderness. No costovertebral tenderness. Full range of motion. Pelvic Exam: Normal external genitalia. Speculum exam with closed cervical os, no discharge or bleeding noted. Bimanual exam with normal adnexa, no adnexal or cervical motion tenderness. Normal uterus. Female : Normal external genitalia. Skin: Warm, dry with normal turgor. Normal color with no rashes, no lesions, and no evidence of cellulitis. MS/ Extremity: Pulses equal, no cyanosis. Neurovascular intact. Full, normal range of motion. Neuro: Awake and alert, GCS 15, oriented to person, place, time, and situation. Cranial nerves II-XII grossly intact. Motor strength 5/5 in all extremities. Sensory grossly intact. Cerebellar exam normal. Normal gait. Psych: Awake, alert, with orientation to person, place and time. Behavior, mood, and affect are within normal limits. 08:08 Abdomen/GI: Inspection: gravid appearance, is noted, Bowel sounds: normal, active, Palpation: mild abdominal tenderness, in the epigastric area, right lower quadrant and left lower quadrant, Liver: no appreciated palpable abnormalities, Hernia: not appreciated. Vital Signs: 05:06 BP 131 / 64; Pulse 83; Resp 16 S; Temp 98.2(O); Pulse Ox 100% on R/A; Weight 99.79 kg bb (R); Height 5 ft. 2 in. (157.48 cm) (R); Pain 10/10; 07:45 BP 119 / 54; Pulse 81; Resp 18; Pulse Ox 100% on R/A; ld1 08:27 BP 132 / 88; Pulse 79; Resp 18; Pulse Ox 100% on R/A; ld1 08:57 BP 150 / 72; Pulse 56; Resp 18; Pulse Ox 100% on R/A; ld1 05:06 Body Mass Index 40.24 (99.79 kg, 157.48 cm) MDM: 06:13 Patient medically screened. yazmin 08:08 Differential diagnosis: Edmonson peña, appendicitis, cholecystitis, Cholelithiasis, yazmin gastritis, gastroesophageal reflux disease, Peptic Ulcer Disease, Pyelonephritis, Ureterolithiasis. Data reviewed: vital signs, nurses notes, lab test result(s), radiologic studies, ultrasound. Data interpreted: youth nutritional monitor: rate is 83 beats/min, rhythm is regular, Pulse oximetry: on room air. Test interpretation: by ED physician or midlevel provider:. Counseling: I had a detailed discussion with the patient and/or guardian regarding: the historical points, exam findings, and any diagnostic results supporting the discharge/admit diagnosis, lab results, radiology results. 10/16 05:36 Order name: Urine Dipstick-Ancillary; Complete Time: 05:37 EDMS 10/16 05:37 Order name: Urine Microscopic Only; Complete Time: 06:17 rn 10/16 05:37 Order name: Urine --Ancillary (enter results) ds4 10/16 05:38 Order name: Urine --Ancillary; Complete Time: 06:17 EDMS 10/16 05:40 Order name: Basic Metabolic Panel rn 10/16 05:40 Order name: CBC with Diff rn 10/16 05:40 Order name: Hepatic Function rn 10/16 05:40 Order name: Lipase rn 10/16 05:41 Order name: Basic Metabolic Panel; Complete Time: 08:00 EDMS 10/16 05:41 Order name: CBC with Automated Diff; Complete Time: 07:20 EDMS 10/16 05:41 Order name: Liver (Hepatic) Function; Complete Time: 08:00 EDMS 10/16 05:41 Order name: Lipase; Complete Time: 08:00 EDMS 10/16 06:17 Order name: Urine Culture EDND 10/16 08:06 Order name: Abo/rh Typing [facility] 10/16 05:40 Order name: IV Saline Lock; Complete Time: 05:54 rn 10/16 05:40 Order name: Labs collected and sent; Complete Time: 05:54 rn 10/16 06:22 Order name: US OB Limited; Complete Time: 08:00 [facility] 10/16 08:06 Order name: HCG-Quantitative [facility] 10/16 08:07 Order name: COVID-19 : Document "Date of Symptom Onset" if Symptomatic. [facility] Administered Medications: 06:16 Drug: Zofran (Ondansetron) 4 mg Route: IVP; Site: right antecubital; jm8 06:58 Drug: NS 0.9% 1000 ml Route: IV; Rate: 1 bolus; Site: right antecubital; jm8 08:21 Drug: NS 0.9% 1000 ml Route: IV; Rate: 125 ml/hr; Site: right antecubital; ld1 08:57 Follow up: Response: No adverse reaction ld1 08:21 Drug: morphine 2 mg Route: IVP; Site: right antecubital; ld1 08:22 Drug: morphine 2 mg Route: IVP; Site: right antecubital; ld1 08:57 Follow up: Response: No adverse reaction ld1 08:22 Drug: Zofran (Ondansetron) 4 mg Route: IVP; Site: right antecubital; ld1 08:57 Follow up: Response: No adverse reaction ld1 08:23 Drug: Pepcid (famotidine) 20 mg Route: IVP; Site: right antecubital; ld1 08:43 Follow up: Response: No adverse reaction ld1 08:43 Follow up: Response: No adverse reaction ld1 Disposition: 10/16/20 08:15 Hospitalization ordered by Hung Olvera for Observation. Preliminary diagnosis are Abdominal tenderness, related conditions, unspecified, second trimester, Gastritis, unspecified. - [facility]. - Status is Observation. ld1 - Condition is Stable. - Problem is new. - Symptoms have improved. Signatures: Dispatcher [employer] EDMS Nolberto Moyer MD MD cha Ballard, Brenda RN RN Joseph Moreno MD MD rn Dibbern, Lauren RN RN ld1 Adriano Mackey RN RN [id number] Corrections: (The following items were deleted from the chart) 09:00 08:15 Hospitalization Ordered by Hung Olvera MD for Observation. Preliminary ld1 diagnosis is Abdominal tenderness; related conditions, unspecified, second trimester; Gastritis, unspecified. Bed requested for [facility]. Status is Observation. Condition is Stable. Problem is new. Symptoms have improved. yazmin
[2020-10-16] MEDS ORDERED: FAMOTIDINE 20 MG/2 ML VIAL IV ONE ×2 (08:31)
[2020-10-16] MEDS ORDERED: MORPHINE 2 MG/ML SYR ONE (08:31)
[2020-10-16 09:06] VITALS: O2SAT 100
[2020-10-16] MEDS ORDERED: ONDANSETRON 4 MG/2 ML VIAL IV PRN (09:15)
[2020-10-16] MEDS ORDERED: FAMOTIDINE 20 MG/2 ML VIAL IV SCH (09:15)
[2020-10-16] MEDS ORDERED: ACETAMINOPHEN 325 MG TABLET PO PRN (09:15)
[2020-10-16] MEDS ORDERED: D5 0.45 NS 1,000 ML IV SCH (09:15)
[2020-10-16] MEDS ORDERED: MORPHINE 4 MG/ML SYR IV PRN (09:15)
[2020-10-16] MEDS ORDERED: PRENATAL VITAMIN PO SCH (09:15)
[2020-10-16 09:57] VITALS: BP 131/65; TEMP 98.8; BMI 33.6
--- NOTE | 2020-10-16 16:39 | PREOPHP ---
Date of Admission: 10/16/2020 A 19-year-old primigravida, approximately 19 weeks 6 days, was seen a week or two ago in the emergenc y room for what she said was a UTI and what we were told was nausea and vomiting. She was advised to stay overnight for observation, but left AMA. She came back this time complaining of generalized pa in. She has a history of depression and anxiety. She had ulcers. She has lost several family membe rs. She was seen by [facility] who did a vaginal probe ultrasound on the first visit, confirmed pre gnancy and the ultrasound today demonstrated another confirmed , possible uterine contractio n versus a retroplacental hematoma, which is less likely. She has had absolutely no bleeding. She i s in no pain now, says she feels much better. We will let her walk up and down the halls. If she wa nts to go home, she can go home this afternoon or she can wait until tomorrow morning if she wishes. She knows at this stage of , even if there was a retroplacental bleed, there is nothing lorri t can be done. She is advised not to have intercourse, to restrict her activities and to go back to the [facility] as soon as possible mostly for the psychiatric aspect. I think that she needs some h elp there. Family History: Really not contributory. Physical Examination: As per the emergency room was all completely normal. As stated, she is having no pain right now, sitting up in bed, using her cellphone, talking to her fa monse. I think the anxiety component overrules everything and she has a very solicitous mother who I think is very concerned and increasing the patient's anxiety. The thought right now, as she has round ligament pain, of about 20 weeks. ROXY/ARELI Voice ID: [id number]
== END 2020-10-16 11:45 | disposition home or self-care (01) ==
LOC: ER 04:46 → ERHOLD 08:41 → 2ND-WC 08:43
PROVIDERS: ADMIT Specialist; ATTEND Specialist
DX: O99.612 Diseases of the digestive system complicating pregnancy, second trimester (principal); K29.70 Gastritis, unspecified, without bleeding; Z3A.19 19 weeks gestation of pregnancy; Z20.822 Contact with and (suspected) exposure to COVID-19
CPT/HCPCS: 36415; 76815; 80048; 80076; 81003; 81015; 81025; 83690; 84702; 85025; 86900; 86901; 87086; 87088; 96374; 96375; 99285; G0378; J2270; J2405; J7030; J7799; U0003